=== PATIENT | male | born 1945 | race Hispanic/Latino ===

== ENCOUNTER → 2020-01-03 | Outpatient (CLI) | payer MEDICARE ==
[~2020-01-03] MED LIST: ASPIRIN325 MG PO; COUMADIN2 MG PO; GLIPIZIDE5 MG PO; IMDUR30 MG PO; LIPITOR20 MG PO; METOPROLOL TART25 MG PO; NITROGLYCERIN0.4 MG SL
--- NOTE | 2020-01-03 09:03 | Diagnostic Imaging Report ---
EXAMINATION: ANKLE 3+ VIEWS LEFT INDICATION: Left ankle pain COMPARISON: None FINDINGS: No acute fracture or dislocation. Alignment is anatomic. Mild ankle soft tissue swelling. Scattered atherosclerotic arterial calcifications. IMPRESSION: Mild ankle soft tissue swelling. No underlying acute osseous injury. Signed by: Tracey Mcneil MD on 01/03/2020 9:00 AM
== END ==
LOC: RAD 08:30
PROVIDERS: ATTEND Family Medicine
DX: M25.572 Pain in left ankle and joints of left foot (principal)

== ENCOUNTER → 2020-05-02 | Outpatient (CLI) | payer MEDICARE ==
--- NOTE | 2020-05-02 13:31 | Diagnostic Imaging Report ---
Left knee, 3 views INDICATION: ^[id number] ^[id number] ^PAIN / TRAUMA Comparison: None available. Discussion: Multiple views of the left knee are negative for an acute displaced fracture or dislocation. Moderate narrowing of the medial and patellofemoral compartments is noted with articulating osteophytes. Phlebolith is noted posteriorly. Small suprapatellar joint effusion is noted, nonspecific. Arteriovascular calcifications are noted. IMPRESSION: Negative for acute displaced fracture or dislocation of the left knee. Nonspecific small suprapatellar joint effusion. Moderate osteoarthritic changes. Signed by: Ross Peña MD on 05/02/2020 1:27 PM
== END ==
LOC: RAD 12:48
PROVIDERS: ATTEND Family Medicine
DX: M25.562 Pain in left knee (principal)

== ENCOUNTER → 2020-06-27 | Outpatient (RCR) | payer MEDICARE | LOC: PT 06-17 10:59 | PROVIDERS: ATTEND Specialist | DX: M17.12 Unilateral primary osteoarthritis, left knee (principal); M54.16 Radiculopathy, lumbar region; M54.32 Sciatica, left side; R26.2 Difficulty in walking, not elsewhere classified; M62.81 Muscle weakness (generalized) ==

== ENCOUNTER 2020-07-26 13:51 | Outpatient (RCR) | payer MEDICARE | END 2020-07-28 | LOC: PT 13:51 | PROVIDERS: ATTEND Specialist | DX: M17.12 Unilateral primary osteoarthritis, left knee (principal); M54.32 Sciatica, left side; S76.819A Strain of other specified muscles, fascia and tendons at thigh level, unspecified thigh, initial encounter; M62.81 Muscle weakness (generalized); R26.2 Difficulty in walking, not elsewhere classified; M54.16 Radiculopathy, lumbar region ==

== ENCOUNTER 2020-07-31 13:56 | Outpatient (RCR) | payer MEDICARE | END 2020-08-25 | LOC: PT 13:56 | PROVIDERS: ATTEND Specialist | DX: M17.12 Unilateral primary osteoarthritis, left knee (principal); M54.16 Radiculopathy, lumbar region; M54.32 Sciatica, left side; S76.819A Strain of other specified muscles, fascia and tendons at thigh level, unspecified thigh, initial encounter; R26.2 Difficulty in walking, not elsewhere classified; M62.81 Muscle weakness (generalized) ==